=== PATIENT | female | born 1995 | race Asian ===

== ENCOUNTER 2020-01-13 10:50 | Emergency (ER) | payer OTHER ==
[~2020-01-13] VITALS: Ht 157.5 cm; Wt 65.9 kg
[2020-01-13 10:52] VITALS: BP 132/98
[2020-01-13 12:23] LABS: COVID AG,FIA SOURCE NASOPHARYNGEAL
== END 2020-01-13 11:54 | disposition home or self-care (01) ==
LOC: EMS 10:58
DX: Z20.828 Contact with and (suspected) exposure to other viral communicable diseases (principal)
CPT/HCPCS: 87426; 99283; C9803

== ENCOUNTER 2021-06-14 15:45 | Inpatient (IN) | payer OTHER ==
[~2021-06-14] VITALS: Ht 157.5 cm; Wt 61.9 kg
[2021-06-14 16:28] LABS: APPEARANCE,URINE CLEAR (CLEAR); GLUCOSE, URINE (UA) NEGATIVE (NEGATIVE); KETONES,URINE NEGATIVE (NEGATIVE); LEUKOCYTE ESTERASE ,URINE NEGATIVE (NEGATIVE); NITRATE,URINE NEGATIVE (NEGATIVE); OCCULT BLOOD,URINE MODERATE (NEGATIVE); PH,URINE 6.5 (5.0-8.0); PROTEIN,URINE TRACE mg/dL (NEGATIVE); SPECIFIC GRAVITIY, URINE 1.032 (1.003-1.030)
[2021-06-14 16:31] LABS: BILIRUBIN,URINE MODERATE (NEGATIVE)
[2021-06-14 16:46] LABS: BACTERIA,URINE None Seen /HPF (None Seen); RBC,URINE 51-100 /HPF (0-2); SQUAMOUS EPITHELIAL CELL,UR Few /LPF (None Seen); WBC,URINE None Seen /HPF (0-5)
[2021-06-14 17:03] LABS: BASOPHILS % (AUTO) 0.6 % (0.0-2.0); EOSINOPHILS % (AUTO) 0.3 % (1.0-6.0); HEMATOCRIT 39.4 % (36-46); HEMOGLOBIN 12.8 g/dL (12.0-16.0); LYMPHOCYTES # (AUTO) 0.9 K/uL (1.0-4.8); LYMPHOCYTES % (AUTO) 12.7 % (22.0-44.0); MEAN CORPUSCULAR HEMOGLOBIN 25.7 pg (26.0-34.0); MEAN CORPUSCULAR HGB CONC 32.4 G/dL (31.0-37.0); MEAN CORPUSCULAR VOLUME 79 fL (80-100); MONOCYTES # (AUTO) 0.3 K/uL (0.1-1.0); MONOCYTES % (AUTO) 4.6 % (2.0-9.0); NEUTROPHILS # (AUTO) 5.8 K/uL (1.8-7.7); NEUTROPHILS % (AUTO) 81.8 % (40.0-70.0); PLATELET COUNT (AUTO) 281 K/uL (150-450); RED BLOOD CELL COUNT(AUTO) 4.97 MIL/uL (4.00-5.20); RED CELL DISTRIBUTION WIDTH 13.7 % (11.5-14.5)
[2021-06-14 17:13] LABS: CALCIUM, TOTAL 8.9 mg/dL (8.8-10.5); CARBON DIOXIDE 29 mmol/L (22-29); CHLORIDE 105 mmol/L (98-107); CREATININE 0.84 mg/dL (0.60-1.30); GLOMERULAR FILTR. RATE CALC > 60 mL/min (>60); GLUCOSE,RANDOM 102 mg/dL (70-110); UREA NITROGEN, BLOOD 17 mg/dL (7-18)
[2021-06-14 17:19] LABS: PROTHROMBIN TIME 10.5 SEC (9.4-11.6)
[2021-06-14 17:39] LABS: ALANINE AMINOTRANSFERASE 1401 U/L (12-78); ALBUMIN 3.7 g/dL (3.4-5.0); ALKALINE PHOSPHATASE 208 U/L (46-116); ANION GAP 9 mmol/L (8-16); ASPARTATE AMINOTRANSFERASE 579 U/L (15-37); BILIRUBIN,TOTAL 3.3 mg/dL (0.1-1.0); CREATINE KINASE, TOTAL ONLY 235 U/L (26-192); HCG,QUANTITATIVE < 1 mIU/mL (0-6); LIPASE 102 U/L (73-393); POTASSIUM 3.6 mmol/L (3.5-5.1); SODIUM SERUM 143 mmol/L (136-145); TOTAL PROTEIN, SERUM 7.2 g/dL (6.4-8.2)
[2021-06-14] MEDS: MORPHINE SULFATE 2 MG/ML SYRINGE IVP ONE ×2 (17:58→18:29)
[2021-06-14] MEDS: FAMOTIDINE 10 MG/ML 2 ML VIAL IVP ONE ×2 (17:59→18:29)
[2021-06-14] MEDS: ONDANSETRON HCL 4 MG/2 ML VIAL IVP ONE ×2 (17:59→18:30)
[2021-06-14] MEDS: KETOROLAC TROMETHAMINE 30 MG/ML VIAL IVP ONE ×2 (17:59→18:29)
[2021-06-14] MEDS ORDERED: SODIUM CHLORIDE 0.9% 1,000 ML IV ONE (18:00)
[2021-06-14 18:36] LABS: ACETAMINOPHEN < 2 mcg/mL (10-30)
[2021-06-14 18:40] LABS: LACTIC ACID 0.7 mmol/L (0.4-2.0)
[2021-06-14 18:46] LABS: SALICYLATE < 2.8 mg/dL (2.8-20.0)
[2021-06-14 19:02] LABS: COVID AG,FIA SOURCE NASOPHARYNGEAL
[2021-06-14] MEDS ORDERED: PIPERACILLIN SODIUM/TAZOBACTAM 4.5 GM in DEXTROSE 5%-WATER 100 ML IV ONE (19:15)
[2021-06-14] MEDS ORDERED: IOHEXOL 350 MG/ML 100 ML VIAL ONE (19:28)
[2021-06-14] MEDS ORDERED: SODIUM CHLORIDE 0.9% 100 ML ONE (19:28)
[2021-06-14] MEDS ORDERED: MORPHINE SULFATE 2 MG/ML SYRINGE IVP PRN (20:45)
[2021-06-14] MEDS ORDERED: ACETAMINOPHEN 325 MG TABLET PO PRN (20:45)
[2021-06-14] MEDS ORDERED: HYDROCODONE/ACETAMINOPHEN 5-325 MG TABLET PO PRN (20:45)
[2021-06-14] MEDS ORDERED: ZOLPIDEM TARTRATE 5 MG TABLET PO PRN (20:45)
[2021-06-14] MEDS ORDERED: BISACODYL 10 MG RECTAL RECTAL SUPPOSITORY PR PRN (20:45)
[2021-06-14] MEDS ORDERED: ONDANSETRON HCL 4 MG/2 ML VIAL IVP PRN (20:45)
[2021-06-14] MEDS ORDERED: MAGNESIUM HYDROXIDE SUSPENSION 30 ML UDCUP PO PRN (20:45)
[2021-06-14] MEDS: DOCUSATE SODIUM 100 MG CAPSULE PO SCH (21:00)
[2021-06-14] MEDS ORDERED: GADOTERATE MEGLUMINE 10 MMOL/20 ML VIAL IVP ONE (21:46)
[2021-06-14] MEDS ORDERED: SODIUM CHLORIDE 0.9% 250 ML IV ONE (21:49)
[2021-06-14 23:36] VITALS: BP 106/66
[2021-06-15] MEDS: SODIUM CHLORIDE 0.9% 1,000 ML IV SCH ×2 (02:01→11:25)
[2021-06-15] MEDS: PIPERACILLIN/TAZO 3.375 GM/D5W 50 ML IV SCH ×3 (02:02→14:19)
[2021-06-15 04:00] VITALS: BP 96/62
[2021-06-15 06:06] LABS: HEPATITIS C AB (EIA) <0.1 s/co ratio (0.0-0.9)
[2021-06-15 06:33] LABS: BASOPHILS % (AUTO) 0.7 % (0.0-2.0); EOSINOPHILS % (AUTO) 1.5 % (1.0-6.0); HEMATOCRIT 37.2 % (36-46); HEMOGLOBIN 12.1 g/dL (12.0-16.0); LYMPHOCYTES # (AUTO) 1.6 K/uL (1.0-4.8); LYMPHOCYTES % (AUTO) 29.6 % (22.0-44.0); MEAN CORPUSCULAR HGB CONC 32.4 G/dL (31.0-37.0); MEAN CORPUSCULAR VOLUME 80 fL (80-100); MONOCYTES # (AUTO) 0.4 K/uL (0.1-1.0); MONOCYTES % (AUTO) 7.3 % (2.0-9.0); NEUTROPHILS # (AUTO) 3.3 K/uL (1.8-7.7); NEUTROPHILS % (AUTO) 60.9 % (40.0-70.0); PLATELET COUNT (AUTO) 251 K/uL (150-450); RED BLOOD CELL COUNT(AUTO) 4.64 MIL/uL (4.00-5.20); RED CELL DISTRIBUTION WIDTH 13.7 % (11.5-14.5)
[2021-06-15 06:46] LABS: ANION GAP 8 mmol/L (8-16); CALCIUM, TOTAL 8.4 mg/dL (8.8-10.5); CARBON DIOXIDE 27 mmol/L (22-29); CHLORIDE 107 mmol/L (98-107); CREATININE 0.89 mg/dL (0.60-1.30); GLOMERULAR FILTR. RATE CALC > 60 mL/min (>60); GLUCOSE,RANDOM 70 mg/dL (70-110); POTASSIUM 3.7 mmol/L (3.5-5.1); SODIUM SERUM 142 mmol/L (136-145); UREA NITROGEN, BLOOD 11 mg/dL (7-18)
[2021-06-15 07:31] VITALS: BP 106/70
[2021-06-15] MEDS: HEPARIN SODIUM,PORCINE 5,000 UNITS/ML VIAL SQ SCH ×3 (08:00→16:00)
[2021-06-15] MEDS: DOCUSATE SODIUM 100 MG CAPSULE PO SCH (08:45)
[2021-06-15] MEDS ORDERED: PANTOPRAZOLE SODIUM 40 MG DR TABLET PO SCH (09:00)
[2021-06-15] MEDS ORDERED: SODIUM CHLORIDE 0.9% 1,000 ML ONE (10:33)
[2021-06-15] MEDS ORDERED: HYDROmorphone 2 MG/ML VIAL IVP PRN (17:00)
[2021-06-15] MEDS ORDERED: FentaNYL CITRATE PF 100 MCG/2 ML VIAL IVP PRN (17:00)
[2021-06-15] MEDS ORDERED: PROPOFOL 1% 20 ML VIAL IVP ONE (18:59)
[2021-06-15] MEDS ORDERED: ROCURONIUM BROMIDE 10 MG/ML 5 ML VIAL IVP ONE (18:59)
[2021-06-15] MEDS ORDERED: LIDOCAINE/PF 2% 5 ML VIAL IM ONE (18:59)
[2021-06-15] MEDS ORDERED: ONDANSETRON HCL 4 MG/2 ML VIAL IVP ONE (18:59)
[2021-06-15] MEDS ORDERED: MIDAZOLAM HCL 2 MG/2 ML VIAL IVP ONE (18:59)
[2021-06-15] MEDS ORDERED: FentaNYL CITRATE PF 100 MCG/2 ML VIAL IVP ONE (18:59)
[2021-06-15] MEDS ORDERED: SUCCINYLCHOLINE CHLORIDE 20 MG/ML 10 ML VIAL IVP ONE (18:59)
[2021-06-15] MEDS ORDERED: OXYGEN THERAPY IH SCH (20:00)
== END 2021-06-15 19:00 | disposition left against medical advice (07) ==
LOC: EMS 15:53 → 6N 19:40
PROVIDERS: ADMIT Internal Medicine; ATTEND Internal Medicine
PROC: 0FC98ZZ Extirpation of Matter from Common Bile Duct, Via Natural or Artificial Opening Endoscopic (ICD-10-PCS; 2021-06-15)
PROC: BF101ZZ Fluoroscopy of Bile Ducts using Low Osmolar Contrast (ICD-10-PCS; principal; 2021-06-15 16:00)
DX: K80.71 Calculus of gallbladder and bile duct without cholecystitis with obstruction (principal); Z20.822 Contact with and (suspected) exposure to COVID-19; Z79.899 Other long term (current) drug therapy; Z91.013 Allergy to seafood
CPT/HCPCS: 71045; 74177; 74183; 76700; 80048; 80053; 80074; 81001; 82247; 82248; 82550; 83605; 83690; 84484; 84702; 84703; 85025; 85610; 85730; 87081; 93005; 99285; G0480; G0481; J0330; J1644; J1885; J2250; J2270; J2405; J2543; J2704; J3010; J3490; J7030; J7050; J7060; Q9967; 36415-L1; 36415-TC